=== PATIENT | female | born 1985 | race Caucasian/White ===

== ENCOUNTER 2016-05-10 15:28 | Emergency (ER) | payer OTHER ==
[~2016-05-10] VITALS: Ht 172.7 cm; Wt 68.0 kg
[2016-05-10 15:37] VITALS: BP 127/89
--- NOTE | 2016-05-10 15:53 | ED HAND/WRIST INJURY COMPLAINT ---
History of Present Illness General Chief Complaint: Laceration Procedure Stated Complaint: "LAC TO INDEX FINGER, WORK RELATED" Source: patient, old records Exam Limitations: no limitations Vital Signs & Intake/Output Vital Signs & Intake/Output Vital Signs Date Time Temp Pulse Resp B/P Pulse O2 O2 Flow FiO2 Ox Delivery Rate 05/10 1537 97.8 94 14 127/89 97 Room Air Allergies Coded Allergies: No Known Allergies (05/10/16) Reconcile Medications Levonorgestrel (Mirena) 20 MCG/24 HOUR (5 YEARS) IUD CONTROL (Reported) Lorazepam 0.5 MG TABLET 1 TAB PO PRN ANXIETY (Reported) Triage Note: PT WAS OPENING AN AMPULE AND CUT HER FINGER LEFT INDEX KNUCKLE Triage Nurses Notes Reviewed? yes Occurred: just prior to arrival Duration: minute(s): (5), constant Timing: single episode today Injury Environment: work Severity: mild Severity Numbers: 1 Pain/Injury Location: Left: 2nd finger. Method of Injury: laceration No Modifying Factors: none Associated Symptoms: none : No Patient currently breastfeeds: No HPI: This is a 31-year-old female who presents from work after sustaining laceration to her left second finger when she accidentally cut it on a glass ampule that she was opening. She now presents with a mild aching pain nonradiating 1 out of 10 to the finger. There is no difficulty with range of motion no numbness no tingling. Her tetanus is up-to-date there is no other injury.no associated sx, no modifying factors Past History Travel History Traveled to [place] past 21 day No Medical History Any Pertinent Medical History? see below for history Gastrointestinal: GERD Surgical History Surgical History: none Psychosocial History What is your primary language Bengali Tobacco Use: Quit >30 days ago ETOH Use: occasional use Illicit Drug Use: denies illicit drug use Family History Hx Contributory? No Review of Systems Review of Systems Constitutional: Reports: see HPI. All Other Systems: Reviewed and Negative Comments Review of systems: See HPI, All other systems negative. Constitutional, no chills no fever, no malaise HEENT: No visual changes no sore throat no congestion Cardiovascular: No chest pain , no palpitation Skin, no rashes, no change in skin Respiratory: No dyspnea no cough no sputum GI: No nausea no vomiting, no diarrhea : No dysuria Muscle skeletal: No joint pain, no back pain, no neck pain, Neurologic: No numbness no headache Psych: No stress Heme/endocrine: No bruising no bleeding Immunology: No lymphadenopathy Physical Exam Physical Exam General Appearance: well developed/nourished, no apparent distress, alert, awake Hand Left: normal range of motion Hand Right: normal inspection, normal range of motion Comments: Well-developed well-nourished patient in no apparent distress. HEENT: Atraumatic, extraocular motion intact Neck: Supple, FROM Back: FROM Cardiovascular: Regular rate and rhythms no murmurs rubs Respiratory: No respiratory distress. Patient speaking in full complete sentences. Breath sounds clear to auscultation bilaterally: NO W/R/R Shoulder: Atraumatic/Stable. FROM . Elbow: Atraumatic/stable. FROM. No laxity Upper arm/Forearm: Atraumatic. Nontender. No edema, 5 out of 5 boat hop strength noted to bilateral upper extremities Hand/Wrist: There is a 1 cm superficial linear laceration noted over the lateral aspect of the left second finger, there is no visualized or palpated foreign body no active bleeding Nontender no ecchymosis, full sensation Refill within normal limits FROM Pulses: Normal/equal radial pulses bilaterally. Brisk cap refill Lower Extremities: full range of motion Neuro: Alert and oriented x3 Skin: Warm & dry;No appreciable rash on exposed skin Psych: Mood affect normal, normal memory normal judgment. Progress Differential Diagnosis: compartment syndrome, sprain, tendon injury Plan of Care: Current Medications Sig/Lui Start time Last Medication Dose Stop Time Status Admin Silver Sulfadiazine 1 JESSA ONCE ONE 05/10 1615 CAN (Silvadene Cream 05/10 1616 50GM ) wound thoroughly irrigated with ns betadine, dermabond and sterile dressing applied. pt to f/u with occ med, advised return with any concerns (MARLENE ORR,BEATRIZ) Departure Departure Time of Disposition: 1557 Disposition: HOME OR SELF CARE Condition: Stable Clinical Impression Primary Impression: Finger laceration Referrals: LAISHA JERNIGAN MD (PCP/Family) Additional Instructions: KEEP AREA CLEAN AND COVERED. FOLLOW UP WITH OCC MED, RETURN WITH ANY CONCERNS OR SIGNS OF INFECTION. Departure Forms: Customer Survey General Discharge Information Procedures Laceration/Wound Repair Laceration/Wound Repair: Wound Location: left 2nd Wound's Depth, Shape: linear, superficial Wound Length (cm): 1 Wound Explored: clean, no foreign body removed, irrigated extensively Irrigated w/ Saline (ccs): 200 Betadine Prep? Yes Wound Repaired With: Dermabond Sterile Dressing Applied: Yes
[2016-05-10] MEDS ORDERED: LORAZEPAM0.5 M1 PO (16:13)
[2016-05-10] MEDS ORDERED: MIRENA1 EACH (16:13)
== END 2016-05-10 16:25 ==
LOC: ERH 15:28
DX: S61.211A Laceration without foreign body of left index finger without damage to nail, initial encounter (principal); W25.XXXA Contact with sharp glass, initial encounter